=== PATIENT | male | born 1975 | race Caucasian/White ===

== ENCOUNTER 2018-05-03 16:18 | Inpatient (IN) | payer BC, OTHER ==
[~2018-05-03] VITALS: Ht 182.9 cm; Wt 130.6 kg
[2018-05-03] MEDS ORDERED: ATORVASTATIN CA40 MG PO (16:24)
[2018-05-03] MEDS ORDERED: ZANTAC 150MG T150 MG PO (16:25)
[2018-05-03] MEDS ORDERED: MEDROLDOSEPACK PO (16:25)
[2018-05-03] MEDS ORDERED: MULTIVITAMINS1 EAC2 PO (16:25)
[2018-05-03 16:34] LABS: HEMATOCRIT 52.6 % (42.0-52.0); HEMOGLOBIN 17.8 gm/dL (14.0-18.0); MCH 29.8 pg (26.0-34.0); MCHC 33.9 g/dL (28.0-37.0); MCV 87.9 fL (80.0-100.0); MPV 8.2 fl. (7.2-11.1); NUCLEATED RBCS 0 /100WBC; PLATELET COUNT* 283 thou/uL (150-400); RBC 5.99 mil/uL (4.50-6.00); RDW-CV 14.2 % (10.5-14.5); WBC 15.4 thou/uL (4.0-11.0)
[2018-05-03 16:43] LABS: ANION GAP 11 mmol/L (7-16); BUN 19 mg/dL (7-18); CALCIUM 9.4 mg/dL (8.5-10.1); CHLORIDE 102 mmol/L (98-107); CO2 27 mmol/L (21-32); CREATININE 1.1 mg/dL (0.6-1.3); GLUCOSE 106 mg/dL (70-99); POTASSIUM 4.3 mmol/L (3.5-5.1); SODIUM 140 mmol/L (136-145)
[2018-05-03 16:47] LABS: INR 1.1; PROTIME 10.7 Seconds (9.20-11.50)
[2018-05-03 17:00] LABS: ABSOLUTE EOSINOPHILS 0.2 thou/uL (0.0-0.7); ABSOLUTE LYMPHOCYTES 2.8 thou/uL (0.8-5.3); ABSOLUTE MONOCYTES 0.6 thou/uL (0.0-1.2); ABSOLUTE NEUTROPHILS 11.9 thou/uL (1.6-8.1); ATYPICAL LYMPHS 5 %; PLATELET ESTIMATE ADEQUATE
[2018-05-03 17:02] LABS: ALKALINE PHOSPHATASE 62 U/L (46-116); CK-MB MASS 0.6 ng/mL (<0.5-3.6); LIPASE 138 U/L (73-393); MAGNESIUM 2.1 mg/dL (1.8-2.4); NT-PRO BRAIN NAT PEPTIDE 534 pg/mL (<300); SGOT 19 U/L (15-37); SGPT 46 U/L (30-65); TOTAL BILIRUBIN 0.5 mg/dL (<0.1-1.0); TOTAL PROTEIN 7.7 g/dL (6.4-8.2); TROPONIN-I LEVEL <0.06 ng/mL (<0.06)
[2018-05-03 17:35] VITALS: BP 120/76
[2018-05-03 17:45] VITALS: BP 108/66
--- NOTE | 2018-05-03 18:39 | NUR ---
ASSUMED CARE OF PATIENT AT 1745 AFTER TRANSFER TO ROOM 229 FROM EMERGENCY DEPARTMENT. PATIENT AWAKE, ALERT, AND ORIENTED APPROPRIATELY. ADMISSION DOCUMENTATION COMPLETED AND CHARTED. NO COMPLAINTS OF PAIN. CARDIZEM GTT INFUSING AT 10 MG/HR. PATIENT UP AD DEONTE. FALL CONTRACT SIGNED. DENIES NEEDS AT THIS TIME. CALL LIGHT WITHIN REACH. NURSING WILL CONTINUE TO MONITOR.
[2018-05-03 19:40] VITALS: BP 109/71
[2018-05-04] VITALS (7 sets, daily range): BP systolic 90–112; BP diastolic 52–63
--- NOTE | 2018-05-04 01:15 | NUR ---
ASSUMED CARE OF PT AT 1900. PT IS ALERT AND ORIENTED. VSS. PERRLA. NO COMPLAINTS OF PAIN. STEADY GAIT. PT IS NO LONGER IN A FIB AND HAS CONVERTED BACK TO SINUS RYTHM. CARDIZEM IS GOING AT 5MG/HR. HEART RATE IS 68. PT IS SLEEPING QUIETLY IN BED. RESPIRATIONS ARE EVEN AND NONLABORED. WILL CONTINUE TO MONITOR PT.
[2018-05-04 04:55] LABS: ABSOLUTE BASOPHILS 0.1 thou/uL (0.0-0.2); ABSOLUTE EOSINOPHILS 0.2 thou/uL (0.0-0.7); ABSOLUTE MONOCYTES 1.5 thou/uL (0.0-1.2); ABSOLUTE NEUTROPHILS 7.2 thou/uL (1.6-8.1); BASOPHILS 1.1 %; EOSINOPHILS 1.5 %; LYMPHOCYTES 30.7 %; MCH 30.2 pg (26.0-34.0); MCHC 33.7 g/dL (28.0-37.0); MCV 89.6 fL (80.0-100.0); MONOCYTES 11.6 %; MPV 8.3 fl. (7.2-11.1); NUCLEATED RBCS 0 /100WBC; PLATELET COUNT* 267 thou/uL (150-400); POLYS 55.1 %; RBC 5.25 mil/uL (4.50-6.00); RDW-CV 14.3 % (10.5-14.5)
[2018-05-04 04:57] LABS: HEMOGLOBIN 15.8 gm/dL (14.0-18.0)
[2018-05-04 05:23] LABS: CALCIUM 9.1 mg/dL (8.5-10.1); CREATININE 1.1 mg/dL (0.6-1.3); POTASSIUM 4.7 mmol/L (3.5-5.1)
--- NOTE | 2018-05-04 10:00 | NUR ---
ASSUMED CARE OF PT AFTER REPORT AT 0730. PT IS ALERT AND ORIENTED X4. VSS.PHYSICAL ASSESSMENT COMPLETED AND CHARTED. SB/SR BBB ON TELE NOTED. PT ON RA. MAINTAINED ON NPO. FOR STRESS TEST TODAY AT 1300. IV LINE PATENT AND INTACT. DENIES ANY PAIN OR COMPLAINS AT THIS TIME. WILL CONTINUE TO MONITOR PT.
--- NOTE | 2018-05-04 11:21 | 2DMMODE ---
[place] [address] 2 D/M-MODE ECHOCARDIOGRAM Name: JANE PAVON Room: [address] IN [facility]#: [id number] Admission: 05/03/18 Attend Phys: Delmar Saenz, Discharge: Date of : 79 Date of Service: 05/04/18 1121 Report #: [id number] THIS REPORT FOR: //name// APPROVED REPORT Study performed: 05/04/2018 10:23:36 EXAM: Comprehensive 2D, Doppler, and color-flow Echocardiogram Patient Location: In-Patient Room #: 229 Status: routine BSA: 2.49 HR: 65 bpm BP: 99/54 mmHg Rhythm: NSR Other Information Technically limited study due to body habitus. Indications Atrial Fibrillation Chest Pain Echo Enhancing Agent Indication: Endocardial border delineation Agent(s) / Amount(s) Used: Optison 3 cc 2D Dimensions LVEF(%): 63.05 (>50%) IVSd: 10.54 (7-11mm) LVOT Diam: 24.36 (18-24mm) LVDd: 45.63 mm PWd: 9.12 (7-11mm) Ascending Ao: 35.35 (22-36mm) LVDs: 30.10 (25-40mm) Aortic Root: 31.31 mm Lindsey's LVEF: 63.05 % Volumes Left Atrial Volume (Systole) LA ESV Index: 24.60 mL/m2 Aortic Valve AoV Peak Gregorio.: 1.12 m/s AO Peak Gr.: 4.98 mmHg LVOT Max P.14 mmHg AO Mean Gr.: 3.04 mmHg LVOT Mean P.75 mmHg LVOT Max V: 1.02 m/[place] [address] 2 D/M-MODE ECHOCARDIOGRAM Name: JANE PAVON Room: [address] IN .R.#: [id number] Admission: 05/03/18 Attend Phys: Delmar Saenz, Discharge: Date of : 79 Date of Service: 05/04/18 1121 Report #: [id number] AO V2 VTI: 22.31 cm LVOT Mean V: 0.59 m/s KAYLA (VTI): 4.11 cm2 LVOT V1 VTI: 19.68 cm Mitral Valve E/A Ratio: 1.43 MV Decel. Time: 207.19 ms MV E Max Gregorio.: 0.55 m/s MV PHT: 60.09 ms MVA (PHT): 3.66 cm2 TDI E/Lateral E': 4.58 E/Medial E': 3.93 Medial E' Gregorio.: 0.14 m/s Lateral E' Gregorio.: 0.12 m/s Pulmonary Valve PV Peak Gregorio.: 0.95 m/s PV Peak Gr.: 3.64 mmHg Tricuspid Valve TR Peak Gr.: 16.66 mmHg RVSP: 21.00 mmHg Left Ventricle The left ventricle is normal size. There is global hypokinesis of the left ventricle. There is normal left ventricular wall thickness. Left ventricular systolic function is mildly decreased. LVEF is 45%. The left ventricular diastolic function is normal. Right Ventricle The right ventricle is normal size. The right ventricular systolic function is normal. Atria The left atrium size is normal. The right atrium size is normal. Aortic Valve The aortic valve is normal in structure. No aortic regurgitation is present. There is no aortic valvular stenosis. Mitral Valve The mitral valve is normal in structure. Trace mitral regurgitation. No evidence of mitral valve stenosis. Tricuspid Valve The tricuspid valve is normal in structure. Trace tricuspid regurgitation. The RVSP is ____21___ [place] [address] 2 D/M-MODE ECHOCARDIOGRAM Name: JANE PAVON Room: [address] IN M.R.#: [id number] Admission: 05/03/18 Attend Phys: Delmar Saenz, Discharge: Date of : 79 Date of Service: 05/04/18 1121 Report #: [id number] Pulmonic Valve The pulmonary valve is normal in structure. There is no pulmonic valvular regurgitation. Great Vessels The aortic root is normal in size. IVC is normal in size and collapses with >50% inspiration Pericardium There is no pericardial effusion. <Conclusion> LVEF is 45%. There is global hypokinesis of the left ventricle. The right ventricular systolic function is normal. No aortic regurgitation is present. There is no aortic valvular stenosis. No evidence of mitral valve stenosis. Trace mitral regurgitation. Trace tricuspid regurgitation. The RVSP is 21mmHg. <ELECTRONICALLY SIGNED> By: Martinez Corcoran MD, FACC 05/04/18 112 20 112 Martinez Corcoran MD, FACC /INF
--- NOTE | 2018-05-04 11:41 | EKG ---
[place] [address] ELECTROCARDIOGRAM REPORT Name: JANE PAVON Room: [address] IN ..#: [id number] Admission: 05/03/18 Attend Phys: Delmar Saenz MD Discharge: Date of : 79 Report #: [id number] THIS REPORT FOR: //name// [facility] ED Test Date: 2018-05-03 Test Time: 16:22:09 Pat Name: JANE PAVON Department: Room: Gender: Finished Cloth Checker: ME : 1975 Requested By: Guille Disla Order Number: [id number] MD: Martinez Corcoran Measurements Intervals [place] Rate: 148 P: NE: QRS: 13 QRSD: 98 T: 16 QT: 292 QTc: 459 Interpretive Statements Atrial fibrillation Baseline wander in lead(s) V1,V3,V4,V5,V6 No previous ECG available for comparison Electronically Signed On 05-04-2018 11:41:13 CDT by Martinez Corcoran [email or web address] <ELECTRONICALLY SIGNED> By: Martinez Corcoran MD, [facility] 05/04/18 1141 1622 1622 Martinez Corcoran MD, [facility] /EPI
--- NOTE | 2018-05-04 11:43 | EKG ---
[place] [address] ELECTROCARDIOGRAM REPORT Name: JANE PAVON Room: [address] ADM IN M.R.#: [id number] Admission: 05/03/18 Attend Phys: Delmar Saenz MD Discharge: Date of : 79 Report #: [id number] THIS REPORT FOR: //name// [facility] Test Date: 2018-05-04 Test Time: 10:15:01 Pat Name: JANE PAVON Department: Room: [address] Gender: M Job Setter Honing: : 1975 Requested By: Mary Kay Case Order Number: [id number] Reading MD: Martinez Corcoran Measurements Intervals [place] Rate: 57 P: 46 [place]: 147 QRS: 24 QRSD: 102 T: 25 QT: 405 QTc: 395 Interpretive Statements Sinus rhythm ST elevation suggests acute pericarditis No previous ECG available for comparison Electronically Signed On 05-04-2018 11:43:05 CDT by Martinez Corcoran [email or web address] <ELECTRONICALLY SIGNED> By: Martinez Corcoran MD, [facility] 05/04/18 1143 1015 1015 Martinez Corcoran MD, [facility] /EPI
--- NOTE | 2018-05-04 15:08 | NUR ---
MET WITH PT AND FAMILY TO DISCUSS HOME SITUATION/DC PLANNING. PT LIVES WITH FAMILY. HE IS INDEPENDENT AND ACTIVE. DENIES ANY DC NEEDS. PLANS TO GO HOME TOMORROW
--- NOTE | 2018-05-04 16:02 | CARDNUC ---
[place] [address] CARDIAC NUCLEAR IMAGING REPORT Name: JANE PAVON Room: [address] IN [facility]#: [id number] Admission: 05/03/18 Attend Phys: Delmar Saenz, Discharge: Date of : 79 Date of Service: 05/04/18 1602 Report #: [id number] THIS REPORT FOR: //name// APPROVED REPORT Study performed: 05/04/2018 09:22:00 Indication: Atrial Fibrillation, Dyspnea, Chest pain Patient Location: In-Patient Room #: 229 Stress Tech: Delmi Cano Stress Nurse: Sherrill Dong RN Ht: 6 ft 0 in Wt: 288 lbs BSA: 2.49 m2 BMI: 39.05 Medical History Medical History: hyperlipidemia Medications: sotolol, apixaban, enoxaparin, diltiazem, atorvastatin Allergies: nkda Cardiac Risk Factors: hyperlipidemia Previous Cardiac Procedures: none Exercise History: Physically active pt seen in ed for new onset a fib with rvr Pharmacologic Stress Pharmacologic stress test was performed by injecting Regadenoson 0.4 mg IV push over 10-15 seconds immediately followed by the intravenous injection of 42.0 mCi of Tc-99m Sestamibi. Time of stress injection: 13:20 Administration Route: IV Administration Site: Left AC Heart Rate at time of stress injection: 85 bpm. Gated Stress SPECT was performed 40 minutes after stress injection. The images were gated to evaluate regional wall motion and calculate left ventricular ejection fraction. Prone imaging was performed. Stress Test Details Stress Test: Pharmacologic stress testing performed using 0.4 mg of regadenoson per 5 mL given IV over 10 seconds. Reason for pharmacologic stress test: physical limitation. Reversal agent Aminophyline 100 mg, [place] [address] CARDIAC NUCLEAR IMAGING REPORT Name: JANE PAVON Room: [address] IN [facility].#: [id number] Admission: 05/03/18 Attend Phys: Delmar Saenz, Discharge: Date of : 79 Date of Service: 05/04/18 1602 Report #: [id number] nausea. HR Resting HR: 66 bpm Max Heart Rate (APMHR): 180 bpm Max HR Achieved: 85 bpm Target HR (85% APMHR): 153 bpm % of APMHR: 47 Recovery HR: 63 bpm HR response to stress: Normal HR response to stress BP Resting BP: 104/80 mmHg Max BP: 103/70 mmHg BP response to stress: Normal blood pressure response to stress. ECG Resting ECG: Sinus Rhythm Stress ECG: Sinus Rhythm ST Change: None Recovery ECG: Sinus Rhythm Recovery ST Change: None Clinical Reason for Termination: Completed protocol Stress Symptoms: Lightheaded Exercise duration: 0 min sec Exercise capacity: [address] Corcoran consulted regarding questionalbe ekg. Ok to do stress test per Dr. Corcoran.. Pt BP low upon arrival to stress lab 104/80. pt given two glasses of water to dring. liter of normal saline one standby. pt continues to be hypotensive so normal saline started wo. pt co nausea after lexiscan given. after 2 minnutes pt co of nausea and not feeling good. aminophylline 50 mg given. pt continues to feel bad. noticed heartrate dropping. pt placed in suppine position and Dr. corcoran called to room. Pt hr was 39 briefly. 2nd dose aminophylline 50 mg given. pt now feeling better and hr has increased to 60's. pt states he feels normal and allowed to sit up and dring cola and eat. Pt held in stress lab for 13 minutes until he felt back to normal and bp had stabilized. ns discaontineued and pt taken to radiology Stress ECG Conclusion negative [place] [address] CARDIAC NUCLEAR IMAGING REPORT Name: JANE PAVON Room: [address] IN .#: [id number] Admission: 05/03/18 Attend Phys: Delmar Saenz, Discharge: Date of : 79 Date of Service: 05/04/18 1602 Report #: [id number] Study: Good Artifact: No artifact Study Data At rest, the left ventricular ejection fraction was 60%.. Perfusion Stress only SPECT images are normal in supine and prone positions, without any perfusion defects. Images were reviewed using Cokonne[employer]. Wall Motion normal LV function, no wall motion abn. Nuclear Conclusion ECG Findings: negative for ischemia Clinical Findings: negative for ischemia Nuclear Findings: negative for ischemia Exercise Capacity: not assessed Left Ventricular Function: normal Risk Study: low Negative stress only study for ischemia <Conclusion> negative for ischemia <ELECTRONICALLY SIGNED> By: Martinez Corcoran MD, FACC 05/04/18 1602 160 160 Martinez Corcoran MD, FACC /INF
--- NOTE | 2018-05-04 18:04 | NUR ---
DECREASED SOTOLOL TO 40MG.EKG DONE REVEALS ST ELEVATION, ACUTE PERICARDITIS. CARDIAC STRESS TEST DONE REVEALS NEGATIVE FOR ISCHEMIA. STILL SR BBB ON TELE. PT ON RA WITH 95% O2 SAT. IV LINE PATENT AND INTACT. DENIES ANY PAIN OR COMPLAIN AT THIS TIME. WILL CONTINUE TO MONITOR PT.
--- NOTE | 2018-05-04 23:31 | NUR ---
ASSUMED CARE OF PT AT 1900. PT IS ALERT AND ORIENTED. VSS. PERRLA. NO COMPLAINTS OF PAIN. STEADY GAIT. PT IS IN SINUS RYTHM ON THE TELEMETRY. PT IS RESTING COMFORTABLY IN BED. RESPIRATIONS ARE EVEN AND NONLABORED. WILL CONTINUE TO MONITOR PT.
[2018-05-05 08:00] VITALS: BP 113/66
--- NOTE | 2018-05-05 11:08 | NUR ---
RECEIVED REPORT FROM ESTRELLA BRISENO. ASSUMED CARE OF PT AROUND O730. PT A&O X4. VSS. O2 SAT 95% ON RA. ENVIRONMENTAL ATTORNEY IN PLACE TRACING SR. ADMISSION ASSESSMENT AND VITALS COMPLETED CHARTED. IV TO LEFT AC INTACT AND SALINE LOCKED. PT DENIES PAIN OR DISCOMFORT SO FAR THIS SHIFT. PT EATING AND DRINKING WITHOUT ISSUE, PT UP AD DEONTE TO THE BATHROOM, VOIDING WITHOUT ISSUE. AT BEDSIDE. PT EXPRESSING FRUSTRATION ABOUT CARE, FEELS HE IS GETTING MANY CONFLICTING REPORTS AND IS UPSET HE HAS NOT SEEN AN "ACTUAL RAT POISONER". PT ADVOCATE AND HOSPITALIST NOTIFIED. PT CURRENTLY SITTING UP IN BED. LOW FALL RISK PRECAUTIONS IN PLACE. CALL LIGHT IS WITHIN REACH. WCTM FOR DURATION OF SHIFT.
[2018-05-05 11:30] VITALS: BP 110/70
[2018-05-05 12:02] VITALS: BP 113/66
--- NOTE | 2018-05-05 13:07 | EKG ---
[place] [address] ELECTROCARDIOGRAM REPORT Name: JANE PAVON Room: [address] ADM IN M.R.#: [id number] Admission: 05/03/18 Attend Phys: Delmar Saenz MD Discharge: Date of : 79 Report #: [id number] THIS REPORT FOR: //name// [facility] Test Date: 2018-05-05 Test Time: 03:37:13 Pat Name: JANE PAVON Department: Room: [address] Gender: M Certified Prosthetist/Orthotist: CLAUDIA : 1975 Requested By: Mary Kay Case Order Number: [id number] Reading MD: Luis Fernando Rosas Measurements Intervals [place] Rate: 60 P: 44 [place]: 155 QRS: 12 QRSD: 104 T: 18 QT: 407 QTc: 407 Interpretive Statements Sinus rhythm ST elev, probable normal early repol pattern Compared to ECG 05/04/2018 10:15:01 No significant changes Electronically Signed On 05-05-2018 13:06:50 CDT by Luis Fernando Rosas [email or web address] <ELECTRONICALLY SIGNED> By: Luis Fernando Rosas MD, [facility] 05/05/18 1306 0337 0337 Luis Fernando Rosas MD, [facility] /EPI
[2018-05-05] MEDS ORDERED: ELIQUIS5 MG PO (13:30)
[2018-05-05] MEDS ORDERED: SOTALOL80 MG PO (14:09)
[2018-05-05] MEDS ORDERED: ZESTRIL2.5 MG PO (14:14)
[2018-05-05 16:00] VITALS: BP 125/76
--- NOTE | 2018-05-05 19:05 | NUR ---
VSS. PT REMAINS A&O X4. STRESS TEST RESULTS REVIEWED. MEDICATIONS UPDATED. SOTALOL LOAD FINISHED - LAST DOSE GIVEN AT 1800 PER PRESLEY JHAVERI AND DR MELO ORDERS. EKG TAKEN POST SOTALOL ADMINISTRATION - QT AND QTC RESULTS CALLED TO PRESLEY JHAVERI - EVERYTHING NORMAL, PT OKAY TO DC. DISCHARGE COMPLETED CHARTED. DISCHARGE SUMMARY AND CARE NOTES GONE OVER WITH PT. PT COMMUNICATES UNDERSTANDING. PT AWARE OF F/U APPOINTMENTS AND MECICATION CHANGES. IV AND EXPLOSIVE ORDNANCE DISPOSAL MANAGER REMOVED. ALL BELONGINGS GATHERED AND SENT WITH THE PT. PT LEFT UNIT WITH NURSING STAFF AND . PT LEFT HOSPITAL WITH IN CAR.
--- NOTE | 2018-05-06 09:38 | EKG ---
[place] [address] ELECTROCARDIOGRAM REPORT Name: JANE PAVON Room: [address] DIS IN M.R.#: [id number] Admission: 05/03/18 Attend Phys: Delmar Saenz MD Discharge: 05/05/18 Date of : 79 Report #: [id number] THIS REPORT FOR: //name// [facility] Test Date: 2018-05-05 Test Time: 18:33:42 Pat Name: JANE PAVON Department: Room: [address] Gender: M Health Care Liaison: : 1975 Requested By: Delmar Saenz Order Number: [id number] [id number] MD: Martín Eric Measurements Intervals [place] Rate: 71 P: 42 [place]: 144 QRS: 12 QRSD: 95 T: 17 QT: 370 QTc: 403 Interpretive Statements Sinus rhythm Compared to ECG 05/05/2018 03:37:13 ST (T wave) deviation no longer present Electronically Signed On 05-06-2018 9:38:27 CDT by Martín Eric [email or web address] <ELECTRONICALLY SIGNED> By: Martín Eric MD, [facility] 05/06/18 0938 1833 1833 Martín Eric MD, [facility] /EPI
== END 2018-05-05 19:06 | disposition home or self-care (01) | DRG 310 ==
LOC: M.ERS 16:18 → M.TBA-ER 16:55 → M.2W 16:55
PROVIDERS: Family Medicine; ADMIT Internal Medicine
DX: I48.0 Paroxysmal atrial fibrillation (principal); E78.5 Hyperlipidemia, unspecified; I42.9 Cardiomyopathy, unspecified; J30.9 Allergic rhinitis, unspecified; E78.00 Pure hypercholesterolemia, unspecified; Z87.442 Personal history of urinary calculi; Z82.49 Family history of ischemic heart disease and other diseases of the circulatory system; Z79.01 Long term (current) use of anticoagulants

== ENCOUNTER → 2020-02-04 | Outpatient (CLI) | payer BC, OTHER ==
[~2020-02-04] MED LIST: ATORVASTATIN CA40 MG PO; ELIQUIS5 MG PO; MEDROLDOSEPACK PO; MULTIVITAMINS1 EAC2 PO; SOTALOL80 MG PO; ZANTAC 150MG T150 MG PO; ZESTRIL2.5 MG PO
== END ==
LOC: M.ULTRA 02-01 13:00
DX: R10.11 Right upper quadrant pain (principal)